=== PATIENT | male | born 1935 | race Caucasian/White ===

== ENCOUNTER → 2017-01-09 | Outpatient (REF) | payer MEDICARE, OTHER ==
[2017-01-09 13:10] LABS: ALBUMIN 3.8 GM/DL (3.2-5.2); ALBUMIN/GLOBULIN RATIO 1.19 (1.00-1.93); ALKALINE PHOSPHATASE 65 U/L (45-117); ALT/SGPT 21 U/L (12-78); ANION GAP 8 MEQ/L (8-16); AST/SGOT 13 U/L (15-37); BILIRUBIN,TOTAL 0.6 MG/DL (0.2-1.0); BLOOD UREA NITROGEN 17 MG/DL (7-18); CALCIUM LEVEL 9.2 MG/DL (8.8-10.2); CARBON DIOXIDE LEVEL 31 MEQ/L (21-32); CHLORIDE LEVEL 102 MEQ/L (98-107); CHOLESTEROL LEVEL 156 MG/DL (<200); GLOMERULAR FILTRATION RATE > 60.0 (>35); GLUCOSE, FASTING 109 MG/DL (83-110); POTASSIUM SERUM 4.2 MEQ/L (3.5-5.1); SODIUM LEVEL 141 MEQ/L (136-145); TRIGLYCERIDES LEVEL 146 MG/DL (<150)
== END ==
LOC: M SFHCCLAY 08:36
PROVIDERS: ATTEND Family Medicine
DX: I10 Essential (primary) hypertension (principal); E78.2 Mixed hyperlipidemia; Z12.5 Encounter for screening for malignant neoplasm of prostate
CPT/HCPCS: 80053; 80061; 84443; G0103

== ENCOUNTER → 2017-01-24 | Outpatient (CLI) | payer MEDICARE, OTHER ==
--- NOTE | 2017-01-25 20:06 | ECHO ---
DATE OF PROCEDURE: 01/24/2017 REFERRING PHYSICIAN: Dr. Keo Lee PATIENT LOCATION: Outpatient. REASON FOR ECHOCARDIOGRAM: Heart murmur. 2D MEASUREMENTS: IVS: 1.2 cm LV: 5.0 cm LVPW: LA: 4.0 cm Aorta: 3.3 cm IVC: 1.5 cm DOPPLER MEASUREMENTS: Peak velocity across the aortic valve: 2.7 m/s Peak velocity across the LVOT: 0.84 m/s Mitral E: 0.82, mitral A: 0.78 with a ratio of 1.1. Maximum tricuspid valve velocity: 2.3 m/s 2D COMMENTS: 1. Normal left ventricular size and systolic function. Subjectively, there may be a mildly increased left ventricular wall thickness. Left ventricular systolic ejection fraction is estimated at 65-70%. 2. Enlarged left atrium. Normal right atrium and left ventricle. 3. Normal aortic root. 4. Trace pericardial effusion noted posteriorly. No evidence of cardiac tamponade. 6. Mildly calcified aortic valve with mildly restricted leaflet motion. Normal mitral valve, tricuspid valve. The pulmonic valve and proximal pulmonary artery branches were not well visualized. 7. The inferior vena cava was normal in size at 1.5 cm, central venous pressure is most likely normal. DOPPLER: Doppler detects trace mitral regurgitation and trace to mild tricuspid regurgitation. The calculated pulmonary artery systolic pressure varies between 30 to 40 mmHg. Assessment of the left ventricular diastolic function appeared to be normal. IMPRESSION: 1. Normal global left ventricular systolic and diastolic function. 2. Aortic valve sclerosis with mild aortic stenosis. 3. Trace mitral regurgitation. 4. Trace to mild tricuspid regurgitation with mild pulmonary hypertension. 5. Trace pericardial effusion noted, no evidence of cardiac tamponade.
== END ==
LOC: M CARPUL 08:22
PROVIDERS: ATTEND Family Medicine
DX: R01.1 Cardiac murmur, unspecified (principal)

== ENCOUNTER → 2017-07-26 | Outpatient (REF) | payer MEDICARE, OTHER ==
[2017-07-26 12:26] LABS: ALBUMIN 3.5 GM/DL (3.2-5.2); ALBUMIN/GLOBULIN RATIO 1.09 (1.00-1.93); ALKALINE PHOSPHATASE 146 U/L (45-117); ALT/SGPT 20 U/L (12-78); ANION GAP 5 MEQ/L (8-16); AST/SGOT 11 U/L (7-37); BILIRUBIN,TOTAL 0.5 MG/DL (0.2-1.0); BLOOD UREA NITROGEN 17 MG/DL (7-18); CALCIUM LEVEL 9.2 MG/DL (8.8-10.2); CARBON DIOXIDE LEVEL 31 MEQ/L (21-32); CHLORIDE LEVEL 105 MEQ/L (98-107); CHOLESTEROL LEVEL 168 MG/DL (<200); GLOMERULAR FILTRATION RATE > 60.0 (>35); GLUCOSE, FASTING 115 MG/DL (83-110); POTASSIUM SERUM 4.6 MEQ/L (3.5-5.1); SODIUM LEVEL 141 MEQ/L (136-145); TOTAL PROTEIN 6.7 GM/DL (6.4-8.2); TRIGLYCERIDES LEVEL 103 MG/DL (<150)
== END ==
LOC: M SFHCCLAY 07:53
PROVIDERS: ATTEND Family Medicine
DX: E78.2 Mixed hyperlipidemia (principal); I10 Essential (primary) hypertension